=== PATIENT | male | born 1990 | race African-American/Black ===

== ENCOUNTER 2017-05-16 10:56 | Inpatient (IN) ==
[2017-05-16] MEDS ORDERED: MORPHINE 2 MG/1 ML SYRINGE IV STA (11:30)
[2017-05-16] MEDS ORDERED: ONDANSETRON 4 MG/2 ML VIAL IV STA (11:33)
[2017-05-16] MEDS ORDERED: MORPHINE 2 MG/1 ML SYRINGE ONE (11:36)
[2017-05-16] MEDS ORDERED: ONDANSETRON 4 MG/2 ML VIAL ONE (11:36)
--- NOTE | 2017-05-16 11:47 | Emergency Department Note ---
Arrival - Arrival Chief Complaint: Abscess Stated Complaint: boil on buttox ED Nursing Triage Note: pt ambulatory to triage with c/o having an abscess to right buttocks. onset this past wednesday. Mode of Arrival: Ambulatory Limitations: No Limitations Source: Patient, Old Records Reviewed, RN Notes Reviewed Time Seen by Provider: 05/16/17 11:12 - History of Present Illness HPI Narrative: 27-year-old black male arrives to ED with: Chief complaint: abscess/boil Onset (ago): 4 day(s) Location: Right buttock Context: history of several previous abscesses in this area, states he had to have surgical drainage at one point Associated symptoms: Pain, malaise, nausea. Absent: Fever, vomiting, diarrhea Treatments prior to arrival: His mother drained it partially yesterday PMHx significant for NIDDM. He does not currently have a PCP (due to no insurance,) and does not have a current prescription. He states that he has not been taking his Metformin as directed, and his blood sugars have been running high. We will give information on the [facility] and encourage patient to apply for service there. Also told to check with [facility] for their pricing. Allergies/Adverse Reactions: Allergies Allergy/AdvReac Type Severity Reaction Status Date / Time No Known Allergies Allergy Verified 05/16/17 11:04 Home Medications: Home Medications Medication Instructions Recorded Confirmed Type metFORMIN [Glucophage] 500 mg PO BID W/MEALS 03/15/16 05/16/17 History Review of System - Review of System 12 point system: reviewed and no additional remarkable complaints except as stated - Review of System Constitutional: Absent: chills, fever Respiratory: Absent: respiratory distress Cardiovascular: Absent: chest pain Gastrointestinal: Present: as per HPI, nausea Skin: Present: as per HPI, lesions Medical,Surgical,& Family Hx - Medical History Endocrine: History of: Diabetes Mellitus (NIDDM) - Family History Family History: Reports;: Family Diabetes, Family Hypertension - Social History Smoking Status: Current every day smoker Frequency of Alcohol Use: Occasionally Type of Drug Use: None Exam Physical Examination: - General General appearance: alert, in no apparent distress - Head Head exam: Present: atraumatic, normocephalic - Chest Chest inspection: Present: normal inspection, symmetric chest wall rise - Respiratory Respiratory exam: Present: normal lung sounds bilaterally. Absent: rales, rhonchi, wheezes - Cardiovascular Cardiovascular exam: Present: regular rate, normal rhythm, normal heart sounds - Extremities Exam Extremities exam: Present: normal inspection, full ROM - Neurological Exam Neurological exam: Present: alert, oriented X3 - Psychiatric Psychiatric exam: Present: normal affect, normal mood - Skin Skin exam: Present: warm, dry, intact. Approximately 2 cm abscess present in perineal area, fluctuant and draining small amount of serosanguineous fluid. -Rectal Rectal exam: Tenderness to right internal anal area Vital Signs: Vital Signs Temperature 97.6 F 05/16/17 20:00 Pulse Rate 93 H 05/16/17 20:00 Respiratory Rate 18 05/16/17 20:00 Blood Pressure 113/80 05/16/17 20:00 O2 Sat by Pulse Oximetry 98 05/16/17 22:58 Course Course Narrative: Ct was ordered to check for perirectal abscess, which was confirmed on CT. Will consult Dr. Naidu for evaluation due to diagnosis and patient's uncontrolled blood sugar. I do not feel I&D in the ED is appropriate. I have advised patient of the plan of care. He verbalizes understanding. Will provide pain and nausea medication until decision is made. 1330: Dr. Naidu here to see patient. Will admit. - Consultations Time: 12:15 (Dr. Naidu notified of pt presence and status. Will come and evaluate.) Results - Labs CBC & BMP: 05/16/17 11:41 05/16/17 11:41 Lab Results: I have reviewed the patients labs - Impressions CT pelvis: Small perirectal collection measuring 2.3 by approximately 1 cm image slice #79 and small amount of fluid present. - Diagnostic Findings Procedure: CT Abdomen and Pelvis: report reviewed by me (See Impression above. ) Disposition Clinical Impression: Perirectal abscess, Hyperglycemia due to type 2 diabetes mellitus Case discussed with: patient Disposition: Still a Patient Condition: Stable Time of Disposition: 13:30 (Admit. Length of stay in ED extended due to waiting on surgery consult.)
[2017-05-16 11:54] LABS: Basophils % 0.5 % (0.0-0.8); Eosinophils # 0.1 10*3/uL (0.0-0.87); Eosinophils % 1.6 % (0.00-10.9); Hematocrit 44.8 VOL% (42.0-52.0); Immature Granulocytes % 0.8 %; Immature Granulocytes Absolute 0.06 #; Lymphocytes # 3.1 10*3/uL (1.4-4.0); Lymphocytes % 39.2 % (21.2-54.2); Mean Corpuscular HGB Conc 35.7 GM/DL (32-36); Mean Corpuscular Hemoglobin 29 PG (27-34); Mean Corpuscular Volume 80.1 FL (87-102); Monocytes # 0.7 10*3/uL (0.11-0.8); Monocytes % 8.2 % (1.7-12.7); Neutrophils # 3.9 10*3/uL (1.4-7.4); Neutrophils % 49.7 % (38.7-73.9); Platelet Count 189 T/CUMM (130-400); Red Blood Count 5.59 MC/CUMM (3.8-5.5); Red Cell Distribution Width 11.8 % (9.3-17.3); White Blood Count 7.9 T/CUMM (4-12)
--- NOTE | 2017-05-16 12:08 | CT Report ---
Exam: CT pelvis w con Date: 05/16/2017 11:31 AM Comparison: Previous exam 09/02/2012 Indication: Question perirectal abscess Total DLP: 600.8 mGy*cm Technical: Images were obtained with the patient prone position through the pelvis with intravenous contrast 100 cc Omnipaque 350. Axial imaging available for review. Dose reduction was performed with decreasing kv and mA and automated exposure Findings: On today's examination contrast is present in the bladder. No free fluid is present. The examination reveals a small collection present measuring approximately 2.3 cm in the left perirectal region. There some wall thickening this measures approximately 10 mm transversely. Bony structures are otherwise intact. The psoas muscles are unremarkable. The gluteal regions are otherwise intact. The rectum is demonstrated. No obvious abscess collection within the peritoneal cavity otherwise are retroperitoneum clearly seen Impression: 1. Small perirectal collection measuring 2.3 by approximately 1 cm image slice #79 and small amount of fluid present. PROCEDURE INTERPRETED AT [facility] DEPARTMENT OF RADIOLOGY Final Report Signed by: Dr. Fly Paula
[2017-05-16 12:16] LABS: Calcium 9.3 MG/DL (8.5-10.1); Osmolality,Calculated 283.2 MOS/KG (273-304)
--- NOTE | 2017-05-16 13:44 | General Surg History&Physical ---
Assessment and Plan (1) Perirectal abscess Status: Acute Assessment and plan: The patient has a perirectal abscess clinically and on CT scan. His history is also concerning for the possibility of fistula in ano. I recommended admission for glucose control and IV antibiotics followed by rectal exam under anesthesia which I will recommend tomorrow once his sugars are better controlled. I have discussed the risks, benefits, and alternatives of the operation with the patient, and the expected outcomes have been reviewed. He would like to proceed with the operative plan. I did discuss the possibility of fistulotomy, seton drainage placement, and drainage of abscess all as different options depending on what we find in the operating room. Current Visit: Yes History of Present Illness Chief complaint: Anal pain History of present illness: Mr. Harris is a 27 year old male with a history of recurrent perirectal abscesses and diabetes who comes to the ER for worsening pain with subjective fevers. The pain is in the anal area. He says that since last year when he had this drained it is been swelling up and draining intermittently. His sugars have not been well controlled he recently stopped taking his metformin. He denies any problems with fecal incontinence. Home Medications Medication Instructions Recorded Confirmed Type Sulfameth/Trimeth 800-160 Tab 1 tablet PO BID #20 tablet 03/15/16 03/20/16 Rx [Bactrim Ds Tab] metFORMIN [Glucophage] 500 mg PO BID W/MEALS 03/15/16 03/20/16 History Allergies Allergy/AdvReac Type Severity Reaction Status Date / Time No Known Allergies Allergy Verified 05/16/17 11:04 Medical,Surgical,& Family Hx - Medical History Endocrine: History of: Diabetes Mellitus (NIDDM) - Family History Family History: Reports;: Family Diabetes, Family Hypertension - Social History Smoking Status: Current every day smoker Frequency of Alcohol Use: Occasionally Type of Drug Use: None Exam - Constitutional Vitals: Period Temp Pulse Resp BP Sys/Herr Pulse Ox Last 24 Hr 97.7 F-97.7 F 82-97 18-20 118-130/69-99 98-100 General appearance: no acute distress, over weight - Head Head exam: Present: normal inspection, normocephalic - Eye Eye exam: Present: EOMI Pupils: Present: DANI - ENT ENT exam: Present: normal exam Mouth exam: Present: normal external inspection, normal voice - Neck Neck exam: Present: normal inspection, trachea midline - Respiratory Respiratory exam: Present: clear to auscultation bilaterally. Absent: accessory muscle use, chest wall tenderness - Cardiovascular Cardiovascular exam: Present: RRR. Absent: systolic murmur, tachycardia - GI/Abdominal GI/Abdominal exam: Present: soft. Absent: tenderness, rebound - Anus/Rectum Anus/Rectum: other (The patient has tenderness on the left side in his perirectal area. Will exam is limited due to pain and tenderness. No drainage is seen.) - Extremities Exam Extremities exam: Present: normal inspection - Back Exam Back exam: Present: normal inspection - Neurological Exam Neurological exam: Present: alert, oriented X3 Speech: Present: normal - Skin Skin exam: Present: normal color, warm - Constitutional Constitutional: Present: as per HPI - EENT Nose, mouth and throat: Present: as per HPI - Cardiovascular Cardiovascular: Present: as per HPI - Respiratory Respiratory: Present: as per HPI - Gastrointestinal Gastrointestinal: Present: as per HPI - Genitourinary Genitourinary: Present: as per HPI - Musculoskeletal Musculoskeletal: Present: as per HPI - Neurological Neurological: Present: as per HPI - Endocrine Endocrine: Present: as per HPI Hematologic/Lymphatic: Present: as per HPI Results - Labs CBC & BMP: 05/16/17 11:41 05/16/17 11:41 - Diagnostic Findings Procedure: CT Abdomen and Pelvis: report reviewed by me, image reviewed by me ( Small left perirectal fluid collection.)
[2017-05-16] MEDS ORDERED: PROMETHAZINE 25 MG/1 ML VIAL IM PRN (15:04)
[2017-05-16] MEDS ORDERED: HYDROmorphone 2 MG/1 ML VIAL IV PRN (15:04)
[2017-05-16] MEDS ORDERED: ACETAMINOPHEN 325 MG TABLET PO PRN (15:04)
[2017-05-16] MEDS ORDERED: GLUCAGON 1 MG VIAL IM PRN (15:04)
[2017-05-16] MEDS ORDERED: ONDANSETRON 4 MG/2 ML VIAL IV PRN (15:04)
[2017-05-16] MEDS ORDERED: DEXTROSE 50% 25 GM/50 ML SYRINGE IV PRN (15:04)
[2017-05-16] MEDS: INSULIN REGULAR 100 UNIT/ML SUBCUT SCH ×2 (17:01→21:16)
[2017-05-16] MEDS: LACTATED RINGERS 1,000 ML IV SCH (17:14)
[2017-05-16] MEDS: LEVOFLOXACIN INJ 750 MG in PREMIX 1 EACH IV SCH (17:15)
[2017-05-16] MEDS: metroNIDAZOLE INJ 500 MG in PREMIX 1 EACH IV SCH (19:01)
[2017-05-17] MEDS: metroNIDAZOLE INJ 500 MG in PREMIX 1 EACH IV SCH ×2 (00:56→07:35)
[2017-05-17] MEDS: LACTATED RINGERS 1,000 ML IV SCH ×2 (04:10→07:35)
[2017-05-17] MEDS: INSULIN REGULAR 100 UNIT/ML SUBCUT SCH ×4 (07:36→21:04)
[2017-05-17] MEDS: PANTOPRAZOLE 40 MG TABLET PO SCH (09:04)
[2017-05-17] MEDS ORDERED: DEXAMETHASONE 10 MG/1 ML VIAL ONE (09:05)
[2017-05-17] MEDS ORDERED: KETOROLAC 30 MG/1 ML VIAL ONE (09:05)
[2017-05-17] MEDS ORDERED: LIDOCAINE 2% 5 ML VIAL ONE (09:05)
[2017-05-17] MEDS ORDERED: PROPOFOL 200 MG/20 ML VIAL IV ONE (09:05)
[2017-05-17] MEDS ORDERED: ONDANSETRON 4 MG/2 ML VIAL ONE (09:05)
--- NOTE | 2017-05-17 09:46 | Operative Note ---
Date of procedure: 05/17/17 Pre-op diagnosis: Perianal abscess Post-op diagnosis: same Procedure: Preoperative diagnoses Perianal abscess Postoperative diagnosis Same Procedures performed Incision and drainage of perianal abscess Rectal exam under anesthesia Findings There was no evidence of fistula but there was a chronic cavity present here. It was opened and cauterized to remove granulation tissue. There is purulent drainage and cultures were sent. There is no mass. Blood loss Minimal Anesthesia GETA Specimen Cultures from perianal abscess Indications Perianal abscess Description of procedure The patient was taken to the operating room and transferred to the operating table in the supine position. Pressure points were padded and SCDs placed lower extremities. General anesthesia administered. Patient was placed in lithotomy position and the perineum was prepped with [place] and draped sterilely. Timeout was called. Rectal exam under anesthesia revealed no significant masses in the rectal or anal canal. There was a area of induration and fluctuance on the right perianal margin tissues that was opened with scalpel purulent drainage was obtained. Cultures were sent to the lab. The cavity had chronic granulation tissue and this was all cauterized in debrided with curette. The wound was packed and the patient was awakened from anesthesia and transferred to recovery. Postoperative plan Follow-up in clinic in 1 week Implants: packing Anesthesia: JOSSE, local Surgeon / Physician: Nico Naidu Estimated blood loss: minimal Specimens: other (cultures) Condition: stable Disposition: PACU Results - Labs CBC & BMP: 05/16/17 11:41 05/16/17 11:41 Discharge Plan - Discharge Data Disposition: Disch To Home/Self Care Condition at Discharge: Stable Discharge Diet: advance to your usual diet Activity: resume usual activities as tolerated Hygiene: may shower Weight Bearing at Discharge: weight bear as tolerated Driving: other (Do not drive or operate heavy machinery for at least 24 hours and after you are off of narcotic pain medications.) Contact your physician if you experience:: fever over 101, Difficulty voiding, Redness or swelling, Nausea/Vomiting, Shortness of breath, Bleeding, pain uncontrolled by pain medications Wound / Dressing Care Instructions: Remove packing once in the morning and once at night. Shower after removing packing and wash area aggressively. Repacked with iodoform packing gauze and cover with dry gauze. - Discharge Medications New HYDROcodone/ACETAMIN 7.5-325 [[place] 7.5-325] 1 tablet PO Q4H PRN #10 tablet PRN Reason: Pain Moderate (4-7) Levofloxacin Inj [Levaquin Inj] 750 mg IV Q24H #7 Continue metFORMIN [Glucophage] 500 mg PO BID W/MEALS - Follow Up or Referral Follow Up: Nico Naidu MD [Physician] - 1 Week - Forms/Instructions
--- NOTE | 2017-05-17 10:00 | Anesthesia Post-Op ---
Anesthesia Post OP - Post Ansesthetic Evaluation Patient seen in post op: Yes Resp: within normal limits CV: within normal limits Mental: within normal limits Temp: within normal limits [id number]-[id number]-Qhvjliznj: within normal limits Nausea and Vomiting: within normal limits Pain: within normal limits
[2017-05-17] MEDS ORDERED: MIDAZOLAM 2 MG/2 ML VIAL ONE (10:07)
[2017-05-17] MEDS ORDERED: fentaNYL 100 MCG/2 ML VIAL ONE (10:07)
[2017-05-17] MEDS ORDERED: SEVOFLURANE 1 UNIT/15 MINUTE INH ONE (10:07)
[2017-05-17] MEDS: LEVOFLOXACIN INJ 750 MG in PREMIX 1 EACH IV SCH (14:29)
[2017-05-17] MEDS ORDERED: metFORMIN 500 MG TABLET PO SCH (18:00)
[2017-05-17] MEDS ORDERED: DEXTROSE 50% 25 GM/50 ML SYRINGE IV PRN (20:25)
[2017-05-17] MEDS ORDERED: GLUCAGON 1 MG VIAL IM PRN (20:25)
--- NOTE | 2017-05-17 20:41 | Hospitalist History & Physical ---
Assessment and Plan - Time spent with patient Time spent with patient: Greater than 30 minutes (1) Hyperglycemia due to type 2 diabetes mellitus Status: Acute Assessment and plan: We will draw an Hgb A1c Increase metformin dosage Continue diabetic diet Consult home health care social worker to assist with patient on follow-up Sliding-scale insulin with Accu-Cheks before meals at bedtime Current Visit: Yes (2) Perirectal abscess Status: Acute Assessment and plan: We will follow surgery recommendations Current Visit: Yes History of Present Illness Chief complaint: boil on buttox History of present illness: Mr. Hraris is a 27 year old male who presented to the ER on 05/16/2017 for a boil on his buttox. Dr. Naidu committed him for glucose control, IV antibiotics , and a rectal exam under anesthesia. Today, patient was taken to the OR where he had an incision and drainage of a perirenal abscess. Dr. Naidu was concerned for a fistula but instead found a chronic cavity that he opened and cauterized to remove granulation tissue. Cultures were sent. Patient has been receiving Levaquin IV. He has a history of a previous perirectal [place] [address] Lizarraga performed an incision and drainage as well. Patient has a long-standing history of diabetes with a diagnosis at age 13. He is supposed to be taking metformin 500 mg p.o. twice daily but has been out of it for approximately 1 year. He states that he is unemployed at this time and unable to afford his medications. He states that he has a glucose meter at home and checks his sugar occasionally. He says when his sugars start to increase he changes his diet. Today his fingersticks have been running in the 200s. This afternoon his glucose increased to 400 after he drank 2 cups of orange juice. We have been consulted by Dr. Naidu to assist patient with control of his glucose. We will increase his metformin, place him on a sliding scale insulin, and continue diabetic diet. We will also consult home health care social worker to assist patient with getting information and appointment for the free clinic. We will not consult diabetic education at this time. Patient is well versed in diabetic diet and exercise. He also states he has attended multiple classes. Home Medications Medication Instructions Recorded Confirmed Type metFORMIN [Glucophage] 500 mg PO BID W/MEALS 03/15/16 05/16/17 History HYDROcodone/ACETAMIN 7.5-325 1 tablet PO Q4H PRN #10 tablet 05/17/17 Rx [[place] 7.5-325] Levofloxacin Inj [Levaquin Inj] 750 mg IV Q24H #7 05/17/17 Rx Allergies Allergy/AdvReac Type Severity Reaction Status Date / Time No Known Allergies Allergy Verified 05/16/17 11:04 Medical,Surgical,& Family Hx - Medical History Cardio: No history of: Cardiovascular Problems Neurology: No history of: Seizures, Neurological Problems Endocrine: History of: Diabetes Mellitus (NIDDM) Respiratory: No history of: Respiratory Problems Renal: No history of: Renal Problems Genitourinary: No history of: Problems Gastrointestinal: No history of: Liver Problems, GI Problems - Surgical History Surgical History: noncontributory - Family History Family History: Reports;: Family Diabetes, Family Hypertension - Social History Smoking Status: Current every day smoker Frequency of Alcohol Use: Occasionally Type of Drug Use: None - Constitutional Constitutional: Absent: anorexia, fatigue, fever(s), weakness - EENT Nose, mouth and throat: Absent: dysphagia - Cardiovascular Cardiovascular: Absent: chest pain at rest, chest pain with activity, dyspnea, edema, lightheadedness, palpitations - Respiratory Respiratory: Absent: cough, dyspnea, hemoptysis - Gastrointestinal Gastrointestinal: Absent: abdominal pain, change in bowel habits, cramping, nausea, vomiting - Genitourinary Genitourinary: Absent: difficulty urinating - Musculoskeletal Musculoskeletal: Present: other (Neuropathies) - Hematologic/Lymphatic Hematologic/Lymphatic: Absent: easy bleeding Exam - Constitutional Vitals: Period Temp Pulse Resp BP Sys/Herr Pulse Ox Last 24 Hr 97.0 F-98.0 F 64-114 16-20 96-125/58-86 97-100 General appearance: normal weight, no acute distress - Head Head exam: Present: normal inspection, normocephalic - Eye Eye exam: Present: EOMI Pupils: Present: DANI - ENT ENT exam: Present: normal exam, normal external ear exam - Neck Neck exam: Present: normal inspection - Respiratory Respiratory exam: Present: clear to auscultation bilaterally. Absent: accessory muscle use (Respirations even and unlabored. Symmetrical rise and fall of chest.) - Cardiovascular Cardiovascular exam: Present: regular rate and rhythm - GI/Abdominal GI/Abdominal exam: Present: normal bowel sounds, soft. Absent: firm, tenderness - Extremities Exam Extremities exam: Present: normal inspection, normal capillary refill, full ROM - Back Exam Back exam: Present: normal inspection - Neurological Exam Neurological exam: Present: alert, oriented X3 (Answers questions appropriately. Makes good eye contact.) - Psychiatric Psychiatric exam: Present: normal affect, normal mood - Skin Skin exam: Present: normal color, warm, dry, other (Surgical wound to perineal area) Results - Labs CBC & BMP: 05/16/17 11:41 05/16/17 11:41 Lab Results: I have reviewed the past 24 hour labs Quality Measures - VTE Contraindication to Pharmacological VTE Prophylaxis: Clinical assessment deems Pt at low risk, no prophalaxis needed
[2017-05-18 00:43] LABS: Apearance,Urine CLEAR (Clear); Bilirubin,Urine Negative (Negative); Blood, Urine Negative (Negative); Glucose,Urine (UA) >=500 mg/dL (Negative); Ketones,Urine 5 mg/dL (Negative); Nitrite,Urine Negative (Negative); Protein,Urine Negative; Urine Color Straw (Yellow); Urine Specific Gravity 1.033 (1.001-1.035); Urine Urobilinogen < 2.0 EU/DL (0.2-1.0)
[2017-05-18 05:17] LABS: Basophils % 0.1 % (0.0-0.8); Eosinophils % 0.2 % (0.00-10.9); Hematocrit 40.1 VOL% (42.0-52.0); Hemoglobin 14.6 GM/DL (14.0-18.0); Immature Granulocytes % 0.6 %; Immature Granulocytes Absolute 0.08 #; Lymphocytes # 2.4 10*3/uL (1.4-4.0); Lymphocytes % 16.8 % (21.2-54.2); Mean Corpuscular HGB Conc 36.4 GM/DL (32-36); Mean Corpuscular Hemoglobin 29 PG (27-34); Mean Corpuscular Volume 80.8 FL (87-102); Mean Platelet Volume 11.4 FL (9.6-12.0); Monocytes % 7.4 % (1.7-12.7); Neutrophils # 10.6 10*3/uL (1.4-7.4); Neutrophils % 74.9 % (38.7-73.9); Platelet Count 191 T/CUMM (130-400); Red Blood Count 4.96 MC/CUMM (3.8-5.5); Red Cell Distribution Width 11.8 % (9.3-17.3); White Blood Count 14.1 T/CUMM (4-12)
[2017-05-18 05:52] LABS: Albumin 3.1 G/DL (3.4-5.0); Bilirubin,Total 0.5 MG/DL (0.2-1.0); Osmolality,Calculated 284.7 MOS/KG (273-304); Potassium 4.3 MMOL/L (3.5-5.1); Total Protein 6.1 G/DL (6.4-8.3)
[2017-05-18] MEDS: INSULIN REGULAR 100 UNIT/ML SUBCUT SCH ×2 (07:50→11:42)
[2017-05-18] MEDS: metFORMIN 500 MG TABLET PO SCH ×2 (07:50→07:55)
--- NOTE | 2017-05-18 09:07 | Discharge Summary ---
Specialty Discharge - Follow Up or Referrals Follow up with: Nico Naidu MD [Physician] - 05/26/17 2:00 pm (please bring medicines, insurance cards and photo id to your appointment) Discharge Plan - Discharge Data Disposition: Disch To Home/Self Care - Discharge Medications New HYDROcodone/ACETAMIN 7.5-325 [[place] 7.5-325] 1 tablet PO Q4H PRN #10 tablet PRN Reason: Pain Moderate (4-7) Levofloxacin Inj [Levaquin Inj] 750 mg IV Q24H #7 Continue metFORMIN [Glucophage] 500 mg PO BID W/MEALS - Follow Up or Referral Follow Up: Nico Naidu MD [Physician] - 05/26/17 2:00 pm (please bring medicines, insurance cards and photo id to your appointment) - Forms/Instructions Instructions: Abscess (GEN) Exam - Constitutional Vitals: Period Temp Pulse Resp BP Sys/Ehrr Pulse Ox Last 24 Hr 97.0 F-99.1 F 63-114 16-20 93-128/54-86 97-100 Discharge Results Procedures and tests throughout hospitalization: Pending Orders 05/16/17 12:01 Blood Culture Stat 05/17/17 Abscess Culture Routine Anaerobic Culture Routine Labs on day of discharge: Labs from last 24 hours 05/18/17 05/18/17 05/18/17 06:46 04:45 04:45 WBC RBC Hgb Hct MCV MCH MCHC RDW Plt Count MPV Neut % (Auto) Lymph % (Auto) [place] % (Auto) Eos % (Auto) Baso % (Auto) Neut # (Auto) Lymph # (Auto) [place] # (Auto) Eos # (Auto) Baso # (Auto) Immature Gran % Nucleated RBC % Immature Gran # Nucleated RBCs # Immature Plt Fraction Sodium 138 Potassium 4.3 Chloride 103 Carbon Dioxide 28 Anion Gap 11.3 BUN 21 H Creatinine 0.80 GFR Calculation 163 BUN/Creatinine Ratio 26.00 H Glucose 220 H POC Glucose 216 H Hemoglobin A1c 12.5 H Calculated Osmolality 284.7 Calcium 9.0 Total Bilirubin 0.50 AST 11 ALT 19 Alkaline Phosphatase 72 Total Protein 6.1 L Albumin 3.1 L Globulin 3.0 Albumin/Globulin Ratio 1.0 L Urine Color Urine Appearance Urine pH Ur Specific [place] Urine Protein Urine Glucose (UA) Urine Ketones Urine Blood Urine Nitrate Urine Bilirubin Urine Urobilinogen Urine Leukocytes Ur Culture Indicated? 05/18/17 05/18/17 05/17/17 04:45 00:26 20:30 WBC 14.1 H D RBC 4.96 Hgb 14.6 Hct 40.1 L MCV 80.8 L MCH 29 MCHC 36.4 H RDW 11.8 Plt Count 191 MPV 11.4 Neut % (Auto) 74.9 H Lymph % (Auto) 16.8 L [place] % (Auto) 7.4 Eos % (Auto) 0.2 Baso % (Auto) 0.1 Neut # (Auto) 10.6 H Lymph # (Auto) 2.4 [place] # (Auto) 1.0 H Eos # (Auto) 0.0 Baso # (Auto) 0.0 Immature Gran % 0.6 Nucleated RBC % 0.0 Immature Gran # 0.08 Nucleated RBCs # 0.00 Immature Plt Fraction 0.0 Sodium Potassium Chloride Carbon Dioxide Anion Gap BUN Creatinine GFR Calculation BUN/Creatinine Ratio Glucose POC Glucose 388 H Hemoglobin A1c Calculated Osmolality Calcium Total Bilirubin AST ALT Alkaline Phosphatase Total Protein Albumin Globulin Albumin/Globulin Ratio Urine Color Straw Urine Appearance Clear Urine pH 5.0 Ur Specific [place] 1.033 Urine Protein Negative Urine Glucose (UA) >=500 Urine Ketones 5 Urine Blood Negative Urine Nitrate Negative Urine Bilirubin Negative Urine Urobilinogen < 2.0 H Urine Leukocytes Negative Ur Culture Indicated? Not indicated 05/17/17 05/17/17 05/17/17 17:42 16:40 16:38 WBC RBC Hgb Hct MCV MCH MCHC RDW Plt Count MPV Neut % (Auto) Lymph % (Auto) [place] % (Auto) Eos % (Auto) Baso % (Auto) Neut # (Auto) Lymph # (Auto) [place] # (Auto) Eos # (Auto) Baso # (Auto) Immature Gran % Nucleated RBC % Immature Gran # Nucleated RBCs # Immature Plt Fraction Sodium Potassium Chloride Carbon Dioxide Anion Gap BUN Creatinine GFR Calculation BUN/Creatinine Ratio Glucose POC Glucose 483 H > 500 H* > 500 H* Hemoglobin A1c Calculated Osmolality Calcium Total Bilirubin AST ALT Alkaline Phosphatase Total Protein Albumin Globulin Albumin/Globulin Ratio Urine Color Urine Appearance Urine pH Ur Specific [place] Urine Protein Urine Glucose (UA) Urine Ketones Urine Blood Urine Nitrate Urine Bilirubin Urine Urobilinogen Urine Leukocytes Ur Culture Indicated? 05/17/17 10:59 WBC RBC Hgb Hct MCV MCH MCHC RDW Plt Count MPV Neut % (Auto) Lymph % (Auto) [place] % (Auto) Eos % (Auto) Baso % (Auto) Neut # (Auto) Lymph # (Auto) [place] # (Auto) Eos # (Auto) Baso # (Auto) Immature Gran % Nucleated RBC % Immature Gran # Nucleated RBCs # Immature Plt Fraction Sodium Potassium Chloride Carbon Dioxide Anion Gap BUN Creatinine GFR Calculation BUN/Creatinine Ratio Glucose POC Glucose 202 H Hemoglobin A1c Calculated Osmolality Calcium Total Bilirubin AST ALT Alkaline Phosphatase Total Protein Albumin Globulin Albumin/Globulin Ratio Urine Color Urine Appearance Urine pH Ur Specific [place] Urine Protein Urine Glucose (UA) Urine Ketones Urine Blood Urine Nitrate Urine Bilirubin Urine Urobilinogen Urine Leukocytes Ur Culture Indicated? Preliminary micro results at discharge 05/17/17 Unknown Abscess Culture - Preliminary Rectum Gram Positive Cocci 05/16/17 12:01 Blood Culture - Preliminary Blood No growth at 1 day 05/16/17 12:01 Blood Culture - Preliminary Blood No growth at 1 day DS: Provider Date of admission: 05/16/17 13:37 Primary care physician: . No PCP Attending physician on admission: Nico Naidu MD Consults: 05/17/17 17:50 Consult to Physician [CONS] Routine Comment: hyperglycemia Consulting Provider: Consult to Specialist Group: Hospitalist When should Consulting Provider be notified: In am Person Notified: Esvin RIDLEY Date Notified: 05/17/17 Time Notified: 18:45 Consult Notification Comment: Paged at [phone] Paged at [phone] call back from Esvin RIDLEY - consult given and informed of MD Naidu order to restart PO Metformin BID 05/17/17 20:20 Consult to Case Mgmt/Social Srvs [CONS] Routine Reason for Case Mgmt/Social Srvs: Other Consult Comment: needs help with info/appt with free clinic 05/18/17 08:17 Consult to Diabetes [facility], Educator [CONS] Routine Reason for Dietary Services Manager: Diabetes Education Consult Comment: hba1c 12.5 Discharging clinician: Ailyn Childers NP
--- NOTE | 2017-05-18 09:26 | Event Note ---
General Surgery Progress Note Chief complaint This patient is a 27-year-old man admitted with a perianal abscess treated with incision and drainage on 05/17/2017 Interval history Patient's blood sugar was over 500 yesterday and he was kept in the hospital for hospitalist consultation. He is having some pain that is expected at the operative site. Sugars are better controlled this morning. He is back on metformin. Physical exam Patient is afebrile with normal vital signs Perineal wound is healing well with good granulation tissue and no purulent drainage or necrotic tissue Labs White blood cell count is 14,000 Glucose is 220 Imaging None new Assessment and plan Local wound care and antibiotics to perianal wound Diabetes management per medicine Patient can be discharged home from my standpoint. Once he has gotten the go ahead from medicine we will send him home with whatever diabetic regimen and recommend.
[2017-05-18] MEDS: PANTOPRAZOLE 40 MG TABLET PO SCH (09:59)
--- NOTE | 2017-05-18 10:09 | Hospitalist Progress Note ---
Assessment and Plan (1) Hyperglycemia due to type 2 diabetes mellitus Status: Acute Assessment and plan: Continue metformin and glyburide upon discharge. Follow diabetic diet. Follow- up with primary care physician in 1-2 weeks. Check blood sugars at home regularly Current Visit: Yes Qualifiers: Diabetes mellitus technician terminal and repeater insulin use: without technician terminal and repeater use Qualified Code(s): E11.65 - Type 2 diabetes mellitus with hyperglycemia (2) Perirectal abscess Status: Acute Current Visit: Yes Hospitalist: Subjective Interval history: Patient seen and examined. No acute events overnight. Case discussed with nursing staff. Labs reviewed. The patient was counseled regarding his diabetic medications and control of his blood sugars. Diabetes education consult was performed this morning. Patient is cleared for discharge home with metformin and glyburide. Exam - Constitutional Vitals: Period Temp Pulse Resp BP Sys/Herr Pulse Ox Last 24 Hr 97.0 F-99.1 F 63-114 16-20 93-128/54-80 97-100 Exam: Constitutional System: No distress. No tremulousness. Head: Normocephalic, atraumatic. Ears, Nose and Throat System: No pain or tenderness. No epistaxis or discharge Eyes System: Pupils equal, round, and reactive. Extraocular muscles intact. Neck: Supple, without adenopathy, No jugular venous distention. No thyromegaly, neck mass, or prior surgery apparent. Respiratory System: Chest clear to auscultation. Cardiovascular System: Heart with regular rate and rhythm. No murmur. GI System: Abdomen soft, nontender. Normo active bowel sounds present. Musculoskeletal System: limbs with no pedal edema. Full distal pulses. Normal capillary refill. Neurological System: No discernable sensory deficit. No aphasia Psychiatric System: Conversation is rational Results - Labs CBC & BMP: 05/18/17 04:45 05/18/17 04:45 Lab Results: I have reviewed the past 24 hour labs Quality Measures - VTE Contraindication to Pharmacological VTE Prophylaxis: Clinical assessment deems Pt at low risk, no prophalaxis needed Specialty Discharge - Follow Up or Referrals Follow up with: Nico Naidu MD [Physician] - 05/26/17 2:00 pm (please bring medicines, insurance cards and photo id to your appointment)
[2017-05-18 11:42] VITALS: BP 108/59
--- NOTE | 2017-05-18 12:18 | Discharge Summary ---
Hospital Course - Hospital Course Hospital Course: Patient is a 27-year-old gentleman who underwent I&D of perianal abscess on 05/17. He was progressing appropriately and planning for discharge when his blood glucose levels were noted to be exceedingly elevated and hospitalist consultation was obtained. Recommendations were made and appreciated and the patient was discharged home with the recommended prescribed medications including metformin and glyburide. Patient was provided with diabetes education and recommend follow-up with a primary care provider 1-2 weeks; he is provided with information for a local free clinic. Wound cultures grew gram- positive cocci; final results pending at the time of discharge. Blood cultures preliminarily had no growth at 1 day. Patient was provided with education on perianal wound care and provided appropriate analgesics and levaquin 750mg PO daily x 7 days. Surgical follow-up was also provided. The patient was discharged home in good condition. Diagnosis - Discharge Diagnosis (1) Hyperglycemia due to type 2 diabetes mellitus Status: Acute (2) Perirectal abscess Status: Acute Specialty Discharge - Follow Up or Referrals Follow up with: Nico Naidu MD [Physician] - 05/26/17 2:00 pm (please bring medicines, insurance cards and photo id to your appointment) Discharge Plan - Discharge Data Disposition: Disch To Home/Self Care Condition at Discharge: Stable Discharge Diet: diabetic diet (Avoid perspiration. Avoid strenuous activity.) Hygiene: may shower Driving: other (Do not drive or operate heavy machinery while taking narcotics) Contact your physician if you experience:: fever over 101, Difficulty voiding, Redness or swelling, Nausea/Vomiting, Bleeding Wound / Dressing Care Instructions: Remove packing once in the morning and once at night. Shower after removing packing wash area aggressively. Repacked with iodoform packing gauze and cover with dry gauze. - Discharge Medications New HYDROcodone/ACETAMIN 7.5-325 [[place] 7.5-325] 1 tablet PO Q4H PRN #10 tablet PRN Reason: Pain Moderate (4-7) Levofloxacin Tab [Levaquin Tab] 750 mg PO DAILY #7 tablet glyBURIDE [Diabeta] 5 mg PO BID W/MEALS #60 tablet metFORMIN [Glucophage] 1,000 mg PO BID W/MEALS #60 tablet Continue metFORMIN [Glucophage] 500 mg PO BID W/MEALS - Follow Up or Referral Follow Up: Nico Naidu MD [Physician] - 05/26/17 2:00 pm (please bring medicines, insurance cards and photo id to your appointment) - Forms/Instructions Instructions: Abscess (GEN) Exam - Constitutional Vitals: Period Temp Pulse Resp BP Sys/Herr Pulse Ox Last 24 Hr 97.0 F-99.1 F 63-114 18-20 93-128/54-70 97-100 Discharge Results Procedures and tests throughout hospitalization: Pending Orders 05/16/17 12:01 Blood Culture Stat 05/17/17 Abscess Culture Routine Anaerobic Culture Routine Blood cultures pending Wound cultures gram-positive cocci Labs on day of discharge: Labs from last 24 hours 05/18/17 05/18/17 05/18/17 10:59 06:46 04:45 WBC RBC Hgb Hct MCV MCH MCHC RDW Plt Count MPV Neut % (Auto) Lymph % (Auto) Johnson % (Auto) Eos % (Auto) Baso % (Auto) Neut # (Auto) Lymph # (Auto) Johnson # (Auto) Eos # (Auto) Baso # (Auto) Immature Gran % Nucleated RBC % Immature Gran # Nucleated RBCs # Immature Plt Fraction Sodium Potassium Chloride Carbon Dioxide Anion Gap BUN Creatinine GFR Calculation BUN/Creatinine Ratio Glucose POC Glucose 172 H 216 H Hemoglobin A1c 12.5 H Calculated Osmolality Calcium Total Bilirubin AST ALT Alkaline Phosphatase Total Protein Albumin Globulin Albumin/Globulin Ratio Urine Color Urine Appearance Urine pH Ur Specific [place] Urine Protein Urine Glucose (UA) Urine Ketones Urine Blood Urine Nitrate Urine Bilirubin Urine Urobilinogen Urine Leukocytes Ur Culture Indicated? 05/18/17 05/18/17 05/18/17 04:45 04:45 00:26 WBC 14.1 H D RBC 4.96 Hgb 14.6 Hct 40.1 L MCV 80.8 L MCH 29 MCHC 36.4 H RDW 11.8 Plt Count 191 MPV 11.4 Neut % (Auto) 74.9 H Lymph % (Auto) 16.8 L Johnson % (Auto) 7.4 Eos % (Auto) 0.2 Baso % (Auto) 0.1 Neut # (Auto) 10.6 H Lymph # (Auto) 2.4 Johnson # (Auto) 1.0 H Eos # (Auto) 0.0 Baso # (Auto) 0.0 Immature Gran % 0.6 Nucleated RBC % 0.0 Immature Gran # 0.08 Nucleated RBCs # 0.00 Immature Plt Fraction 0.0 Sodium 138 Potassium 4.3 Chloride 103 Carbon Dioxide 28 Anion Gap 11.3 BUN 21 H Creatinine 0.80 GFR Calculation 163 BUN/Creatinine Ratio 26.00 H Glucose 220 H POC Glucose Hemoglobin A1c Calculated Osmolality 284.7 Calcium 9.0 Total Bilirubin 0.50 AST 11 ALT 19 Alkaline Phosphatase 72 Total Protein 6.1 L Albumin 3.1 L Globulin 3.0 Albumin/Globulin Ratio 1.0 L Urine Color Straw Urine Appearance Clear Urine pH 5.0 Ur Specific [place] 1.033 Urine Protein Negative Urine Glucose (UA) >=500 Urine Ketones 5 Urine Blood Negative Urine Nitrate Negative Urine Bilirubin Negative Urine Urobilinogen < 2.0 H Urine Leukocytes Negative Ur Culture Indicated? Not indicated 05/17/17 05/17/17 05/17/17 20:30 17:42 16:40 WBC RBC Hgb Hct MCV MCH MCHC RDW Plt Count MPV Neut % (Auto) Lymph % (Auto) Johnson % (Auto) Eos % (Auto) Baso % (Auto) Neut # (Auto) Lymph # (Auto) Johnson # (Auto) Eos # (Auto) Baso # (Auto) Immature Gran % Nucleated RBC % Immature Gran # Nucleated RBCs # Immature Plt Fraction Sodium Potassium Chloride Carbon Dioxide Anion Gap BUN Creatinine GFR Calculation BUN/Creatinine Ratio Glucose POC Glucose 388 H 483 H > 500 H* Hemoglobin A1c Calculated Osmolality Calcium Total Bilirubin AST ALT Alkaline Phosphatase Total Protein Albumin Globulin Albumin/Globulin Ratio Urine Color Urine Appearance Urine pH Ur Specific [place] Urine Protein Urine Glucose (UA) Urine Ketones Urine Blood Urine Nitrate Urine Bilirubin Urine Urobilinogen Urine Leukocytes Ur Culture Indicated? 05/17/17 16:38 WBC RBC Hgb Hct MCV MCH MCHC RDW Plt Count MPV Neut % (Auto) Lymph % (Auto) Johnson % (Auto) Eos % (Auto) Baso % (Auto) Neut # (Auto) Lymph # (Auto) Johnson # (Auto) Eos # (Auto) Baso # (Auto) Immature Gran % Nucleated RBC % Immature Gran # Nucleated RBCs # Immature Plt Fraction Sodium Potassium Chloride Carbon Dioxide Anion Gap BUN Creatinine GFR Calculation BUN/Creatinine Ratio Glucose POC Glucose > 500 H* Hemoglobin A1c Calculated Osmolality Calcium Total Bilirubin AST ALT Alkaline Phosphatase Total Protein Albumin Globulin Albumin/Globulin Ratio Urine Color Urine Appearance Urine pH Ur Specific [place] Urine Protein Urine Glucose (UA) Urine Ketones Urine Blood Urine Nitrate Urine Bilirubin Urine Urobilinogen Urine Leukocytes Ur Culture Indicated? Preliminary micro results at discharge 05/17/17 Unknown Abscess Culture - Preliminary Rectum Gram Positive Cocci 05/16/17 12:01 Blood Culture - Preliminary Blood No growth at 1 day 05/16/17 12:01 Blood Culture - Preliminary Blood No growth at 1 day - Impressions Pelvis CT revealed small perirectal abscess DS: Provider Date of admission: 05/16/17 13:37 Primary care physician: . No PCP Attending physician on admission: Nico Naidu MD Consults: 05/17/17 17:50 Consult to Physician [CONS] Routine Comment: hyperglycemia Consulting Provider: Consult to Specialist Group: Hospitalist When should Consulting Provider be notified: In am Person Notified: Esvin RIDLEY Date Notified: 05/17/17 Time Notified: 18:45 Consult Notification Comment: Paged at [phone] Paged at [phone] call back from Esvin RIDLEY - consult given and informed of MD Naidu order to restart PO Metformin BID 05/17/17 20:20 Consult to Case Mgmt/Social Srvs [CONS] Routine Reason for Case Mgmt/Social Srvs: Other Consult Comment: needs help with info/appt with free clinic 05/18/17 08:17 Consult to [facility], Educator [CONS] Routine Reason for Cpc Coder: Diabetes Education Consult Comment: hba1c 12.5 Discharging clinician: Alondra Valle PA-C
[2017-05-18] MEDS ORDERED: glyBURIDE 5 MG TABLET PO SCH (17:00)
== END 2017-05-18 12:54 | disposition home or self-care (01) | DRG 349 ==
LOC: N.ED 10:56 → N.EDINP 13:37 → N.3E 14:43
PROVIDERS: ADMIT Surgery; ATTEND Surgery

== ENCOUNTER 2018-03-12 13:38 | Inpatient (IN) ==
[2018-03-12] MEDS ORDERED: SODIUM CHLORIDE 0.9% 1,000 ML IV STA (14:18)
[2018-03-12] MEDS ORDERED: PIPERACILLIN/TAZOBACTAM 3,375 MG in SODIUM CHLORIDE 0.9% 100 ML IV STA (14:19)
[2018-03-12 14:55] LABS: Basophils # 0.1 10*3/uL (0.0-0.2); Basophils % 0.6 % (0.0-0.8); Eosinophils # 0.3 10*3/uL (0.0-0.87); Eosinophils % 2.5 % (0.00-10.9); Hematocrit 41.3 VOL% (42.0-52.0); Hemoglobin 14.5 GM/DL (14.0-18.0); Immature Granulocytes % 0.4 %; Immature Granulocytes Absolute 0.04 #; Mean Corpuscular HGB Conc 35.1 GM/DL (32-36); Mean Corpuscular Hemoglobin 29 PG (27-34); Mean Corpuscular Volume 81.6 FL (87-102); Mean Platelet Volume 11.3 FL (9.6-12.0); Monocytes # 0.7 10*3/uL (0.11-0.8); Monocytes % 6.7 % (1.7-12.7); Neutrophils # 7.5 10*3/uL (1.4-7.4); Neutrophils % 70.8 % (38.7-73.9); Platelet Count 194 T/CUMM (130-400); Red Blood Count 5.06 MC/CUMM (3.8-5.5); Red Cell Distribution Width 11.8 % (9.3-17.3); White Blood Count 10.6 T/CUMM (4-12)
[2018-03-12 15:09] LABS: Calcium 8.8 MG/DL (8.5-10.1); Osmolality,Calculated 285.5 MOS/KG (273-304); Potassium 3.5 MMOL/L (3.5-5.1)
[2018-03-12] MEDS ORDERED: PANTOPRAZOLE 40 MG VIAL IV STA (15:59)
[2018-03-12] MEDS ORDERED: PANTOPRAZOLE 40 MG VIAL IV ONE (16:00)
[2018-03-12] MEDS ORDERED: HYDROmorphone 2 MG/1 ML VIAL IV PRN (17:23)
[2018-03-12] MEDS ORDERED: GLUCAGON 1 MG VIAL IM PRN (17:23)
[2018-03-12] MEDS ORDERED: ONDANSETRON 4 MG/2 ML VIAL IV PRN (17:23)
[2018-03-12] MEDS ORDERED: DEXTROSE 50% 25 GM/50 ML VIAL IV PRN (17:23)
[2018-03-12] MEDS ORDERED: SEVOFLURANE 1 UNIT/15 MINUTE INH ONE (17:42)
[2018-03-12] MEDS ORDERED: fentaNYL 100 MCG/2 ML VIAL ONE (17:42)
[2018-03-12] MEDS ORDERED: PROPOFOL 200 MG/20 ML VIAL IV ONE (17:42)
[2018-03-12] MEDS ORDERED: ONDANSETRON 4 MG/2 ML VIAL ONE (17:43)
[2018-03-12] MEDS ORDERED: DEXAMETHASONE 10 MG/1 ML VIAL ONE (17:43)
[2018-03-12] MEDS ORDERED: LACTATED RINGERS 1,000 ML IV ONE (17:43)
[2018-03-12] MEDS ORDERED: PHENYLEPHRINE 1 MG/10 ML SYRINGE IV ONE (17:43)
[2018-03-12] MEDS ORDERED: MIDAZOLAM 2 MG/2 ML VIAL ONE (17:43)
[2018-03-12] MEDS ORDERED: KETOROLAC 30 MG/1 ML VIAL ONE (17:43)
[2018-03-12 22:23] LABS: Apearance,Urine CLEAR (Clear); Bacteria,Urine Occasional /HPF (Few); Bilirubin,Urine Negative (Negative); Blood, Urine Negative (Negative); Glucose,Urine (UA) >=500 mg/dL (Negative); Ketones,Urine 20 mg/dL (Negative); Mucus,Urine Occasional /LPF (Occasional); Nitrite,Urine Negative (Negative); Protein,Urine 30 MG/DL; RBC,Urine <1 /HPF (0-4); Urine Color Yellow (Yellow); Urine Specific Gravity 1.036 (1.001-1.035); Urine Urobilinogen < 2.0 EU/DL (0.2-1.0); WBC,Urine 1 /HPF (0-6)
[2018-03-12] MEDS: PIPERACILLIN/TAZOBACTAM 3,375 MG in SODIUM CHLORIDE 0.9% 100 ML IV SCH (23:50)
[2018-03-13 06:07] LABS: Basophils % 0.1 % (0.0-0.8); Hematocrit 40.5 VOL% (42.0-52.0); Hemoglobin 14.6 GM/DL (14.0-18.0); Immature Granulocytes % 0.5 %; Immature Granulocytes Absolute 0.07 #; Lymphocytes # 1.2 10*3/uL (1.4-4.0); Lymphocytes % 8.8 % (21.2-54.2); Mean Corpuscular Hemoglobin 29 PG (27-34); Mean Corpuscular Volume 79.9 FL (87-102); Mean Platelet Volume 12.1 FL (9.6-12.0); Monocytes # 0.6 10*3/uL (0.11-0.8); Monocytes % 4.3 % (1.7-12.7); Neutrophils # 11.6 10*3/uL (1.4-7.4); Neutrophils % 86.3 % (38.7-73.9); Platelet Count 225 T/CUMM (130-400); Red Blood Count 5.07 MC/CUMM (3.8-5.5); White Blood Count 13.4 T/CUMM (4-12)
[2018-03-13] MEDS: PIPERACILLIN/TAZOBACTAM 3,375 MG in SODIUM CHLORIDE 0.9% 100 ML IV SCH ×3 (06:15→23:30)
[2018-03-13 06:30] LABS: Risk Ratio 4.66; VLDL CHOLESTEROL 25.6 MG/DL
[2018-03-13 06:40] LABS: Calcium 8.8 MG/DL (8.5-10.1)
[2018-03-13] MEDS ORDERED: metFORMIN 500 MG TABLET PO SCH (08:00)
[2018-03-13] MEDS: INSULIN LISPRO 100 UNIT/ML SUBCUT SCH ×4 (08:49→20:34)
[2018-03-13] MEDS: LISINOPRIL 10 MG TABLET PO SCH (10:22)
[2018-03-13] MEDS ORDERED: PIOGLITAZONE 15 MG TABLET PO SCH (11:00)
[2018-03-13] MEDS ORDERED: MORPHINE 4 MG/1 ML VIAL IV PRN (13:30)
[2018-03-13] MEDS: NICOTINE 21 MG/24 HR PATCH TRANSDERM SCH (13:59)
[2018-03-13] MEDS: metFORMIN 500 MG TABLET PO SCH (16:39)
[2018-03-14] MEDS: PIPERACILLIN/TAZOBACTAM 3,375 MG in SODIUM CHLORIDE 0.9% 100 ML IV SCH ×2 (06:35→14:55)
[2018-03-14] MEDS: metFORMIN 500 MG TABLET PO SCH (09:54)
[2018-03-14] MEDS: INSULIN LISPRO 100 UNIT/ML SUBCUT SCH ×2 (09:54→11:43)
[2018-03-14] MEDS: LISINOPRIL 10 MG TABLET PO SCH (09:55)
[2018-03-14] MEDS: NICOTINE 21 MG/24 HR PATCH TRANSDERM SCH (09:55)
[2018-03-14 11:22] VITALS: BP 142/88
== END 2018-03-14 15:25 | disposition home or self-care (01) | DRG 581 ==
LOC: N.ED 13:38 → N.3E 16:50 → N.EDINP 17:23 → N.3E 18:20
PROVIDERS: ADMIT Surgery; ATTEND Surgery